=== PATIENT | female | born 1955 | race Caucasian/White ===

== ENCOUNTER 2024-04-19 10:50 | Day surgery (SDC) | payer OTHER ==
--- NOTE | 2024-04-15 13:01 | RAD REPORT ---
EXAMINATION: TWO VIEW CHEST XR CLINICAL INDICATION: pre-op pending heart cath TECHNIQUE: 2 views of the chest was performed. COMPARISON: No prior exam. FINDINGS: The lungs are well inflated and clear. The heart is upper limit of normal in size. No displaced fract ures evident. IMPRESSION: No acute or significant abnormalities.
[2024-04-15 13:07] LABS: Absolute Monocytes 0.3 K/uL (0.1-1.3); Absolute Neutrophil 1.9 K/uL (1.8-8.0); Basophils % 0.8 % (0-1.3); Eosinophils % 1.5 % (0-4.4); Hemoglobin 12.8 g/dL (12.0-15.0); Lymphocytes % 29.4 % (15.3-44.8); MCH 27.9 pg (27.0-35.0); MCHC 33.8 g/dL (32.0-36.0); MCV 82.5 fL (80-100); Monocytes % 9.5 % (3.3-12.3); Neutrophils % 58.8 % (41.7-73.7); Nucleated Red Blood Cells % 0.1 % (0-0); PT Prothrombin Time 12.2 SECONDS (9.4-12.5); PTT, Activated Partial Thromb 33.1 SECONDS (24.3-36.9); Platelets 81 thou/uL (152-406); Protime INR 1.09; RBC Red Blood Cell Count 4.61 M/uL (3.86-4.86); Red Cell Distribution Width 15.2 % (12.1-15.2)
[2024-04-15 15:10] LABS: Blood Morphology Comment NOT SEEN (NOT SEEN); Platelet Estimate DECR; White Blood Cell Scan OK (OK)
--- NOTE | 2024-04-16 13:37 | EKG ---
Test Date: 2024-04-15 Test Time: 13:35:13 Lead Sustainability Specialist: YESSENIA MEASUREMENT RESULTS: Intervals: Rate: 50 AR: 168 QRSD: 84 QT: 466 QTc: 424 [place]: P: 65 AR: 168 QRS: 78 T: 81 INTERPRETIVE STATEMENTS: Sinus bradycardia Otherwise normal ECG No previous ECG available for comparison Electronically Signed On 04-16-24 13:35:55 [employer]ABLE [employer]OOK by Nikunj Carlson
[2024-04-19] MEDS ORDERED: NA CHLORIDE 0.9% 500 ML ONE (10:51)
[2024-04-19] MEDS ORDERED: HEPA 1000U/500MLS 2,000 UNIT/1,000 ML BAG IV ONE (11:36)
[2024-04-19] MEDS ORDERED: VERAPAMIL HCL 10 MG/4 ML VIAL IV ONE (11:36)
[2024-04-19] MEDS ORDERED: LIDOCAINE 1% 20 ML MDV ONE (11:36)
[2024-04-19] MEDS ORDERED: HEPARIN 10,000 UNIT/10 ML VIAL IV ONE (11:36)
[2024-04-19] MEDS ORDERED: ASPIRIN 325 MG TAB ONE (11:37)
[2024-04-19] MEDS ORDERED: ATROPINE SULF 1 MG/10 ML SYR IV ONE (11:37)
[2024-04-19] MEDS ORDERED: MIDAZOLAM HCL 2 MG/2 ML INJ ONE (11:37)
[2024-04-19] MEDS ORDERED: CLOPIDOGREL 75 MG TABLET ONE (11:37)
[2024-04-19] MEDS ORDERED: HEPARIN 5000 UNIT/ML 1 ML VIAL ONE (11:37)
[2024-04-19] MEDS ORDERED: TICAGRELOR 90 MG TABLET PO ONE (11:37)
[2024-04-19] MEDS ORDERED: FENTANYL CITR 100 MCG/2 ML ONE (11:38)
--- NOTE | 2024-04-19 12:53 | OP ---
Date of Procedure: 04/19/2024 Surgeon: QIAN DIAZ Procedures Performed: 1.Selective coronary angiogram. 2.Left heart catheterization. Indication: Chest pain with abnormal stress test. Access: Right radial artery 6-Persian closed with TR band. Complications: None. Bleeding: Less than 50 mL. Anesthesia: Total sedation time is 45 minutes. Used fentanyl and Versed. Description Of Procedure: After risks, benefits, and alternatives were explained, the patient agreed to procedure and signed informed consent. [facility]pped and draped in usual sterile fashion. Then, I accessed right radial artery using pedi atric micropuncture kit, placed 6-Persian Slender sheath. Took 5-Persian [place] 4.0 catheter into the a ortic root over a J-wire across the aortic valve, measured the LVEDP. Pullback did not record any gr adient and engaged the left main, took standard views and then in the RCA, took standard views, and r emoved the catheter and the sheath, placed TR band with good hemostasis. Findings: 1.Left main; large and normal. 2.LAD; proximal segment is large and normal. Mid segment, there is focal 50% stenosis. Diagonal br anches are normal. 3.Left circumflex is moderate size and normal. 4.RCA; moderate size vessel and codominant, proximal 50%, mid 50% stenosis. Rest of it is normal. 5.Normal LVEDP at 9 mmHg. Conclusion: Moderate coronary artery disease with normal LVEDP. Recommendation: Medical management. SR/MODL Voice ID: [id number] Report ID: [id number]
[2024-04-19 14:46] VITALS: BP 126/64; O2SAT 93
== END 2024-04-19 15:00 | disposition home or self-care (01) ==
LOC: CCL 10:50
PROVIDERS: ATTEND Internal Medicine
DX: I25.10 Atherosclerotic heart disease of native coronary artery without angina pectoris (principal); I34.0 Nonrheumatic mitral (valve) insufficiency; I11.0 Hypertensive heart disease with heart failure; I50.32 Chronic diastolic (congestive) heart failure; E78.2 Mixed hyperlipidemia; Z87.891 Personal history of nicotine dependence; Z79.899 Other long term (current) drug therapy; Z88.0 Allergy status to penicillin
CPT/HCPCS: 93005; 85025; 36415; 85610; 85730; 71046; 93458; 76937; C1893; Q9966; J1644; J2003; J2250; J3010; J7040; 99152; 99153; J0461